=== PATIENT | male | born 1985 ===

== ENCOUNTER 2020-11-16 10:00 | Outpatient (AMB) | payer OTHER, SELFPAY ==
--- NOTE | 2020-11-16 10:20 | MHC.OFFVIS ---
Vital Signs 11/16/20 10:21 Height 5 ft 10 in Weight 211 lb BMI 30.2 BP 120/70 Pulse 88 Pulse Source Pulse Oximeter Temp 98.2 F Pulse Oximetry (%) 98 Oxygen Delivery Method Room Air Intake Visit Reasons: anxiety, weight gain Development Assistant Required: No Accompanied by: Parent Allergies No Known Allergies [No Known Allergies*] Allergy (Verified 04/19/24 09:29) Medication List - Last Reconciled 11/16/20 by Stan Tamez MD citalopram 20 mg PO DAILY clonidine HCl mg PO risperidone 1 mg PO BEDTIME HPI HPI anxiety, weight gain: Details: Patient is brought in today by his mother for further evaluation of a few concerning issues His mother states that he seems to have gained a lot of weight lately - is currently at 211 pounds today and he was just at 193 pounds when he was last seen back in 04/2020 States that patient also has had a recurrent non-productive cough for a few weeks now but his family has not noticed any SOB or increased congestion lately Patient also has not had any fever or chills and has not complained of any sore throat over the past week or so He has not complained of any chest pains and has had no nausea, vomiting, abdominal pain or change in bowel habits lately His mother adds that the skin lesion on his left thigh/buttocks area that was removed by dermatology last year seems to have recurred and she would like for him to go back to dermatology to have this rechecked and removed again if possible [facility] Medical History (Updated 04/19/24 @ 09:38 by Stan Tamez MD) Overweight (BMI 25.0-29.9) Vitamin D deficiency Tinea pedis of right foot Cellulitis of right foot Allergic dermatitis Autism Pyogenic granuloma Surgical History No pertinent past surgical history Family History Father Hypertension Hypercholesteremia Mother Depression Arthritis Brother In good health Autism Sister In good health Social History Housing: House Alcohol intake: never Patient Tobacco Use Status: Never used Tobacco e-Cigarette/Vaping Use: Never Used Second Hand Smoke Exposure: No service: No Current occupational status: disabled Cognitive needs: Yes Hearing needs: No Vision needs: No Review of Systems Const Denies chills, Denies fatigue, Denies fever(s), Denies headache(s) and Reports weight gain ENT Denies dysphagia, Denies dizziness, Denies otalgia, Denies headache(s), Denies neck pain, Denies odynophagia and Denies sore throat Card Denies chest pain, Denies palpitations and Denies dyspnea Resp Reports cough (recurrent, non-productive) and Denies dyspnea GI Denies abdominal pain, Denies constipation, Denies dysphagia, Denies heartburn, Denies diarrhea, Denies nausea, Denies odynophagia and Denies vomiting Denies dysuria and Denies nocturia Musc Denies neck pain Skin/Breast Reports lesions (recurrent skin lesion over the left thigh/buttock area) Neuro Denies dizziness and Denies headache(s) Endo Denies fatigue and Denies palpitations Physical Exam Vital Signs: Last Vital Signs Temp 98.2 F 11/16/20 10:21 Pulse 88 11/16/20 10:21 BP 120/70 11/16/20 10:21 Pulse Ox 98 11/16/20 10:21 Oxygen Delivery Method Room Air 11/16/20 10:21 BMI result Body Mass Index 30.2 Const General: no acute distress and alert HENMT Ears: TM's normal bilaterally and EAC's normal Throat: Yes posterior oropharynx normal and Yes tonsils normal (no TP congestion) Neck Neck: Yes no lymphadenopathy and Yes supple Thyroid: Thyroid normal Resp Auscultation: clear to auscultation bilaterally, no rales and no wheezes Cardio Rate: regular rate Rhythm: regular rhythm Heart sounds: no murmurs GI Palpation (GI): Soft to palpation and nontender Auscultation: normal bowel sounds General: Yes no CVA tenderness Back/Spine/Pelvis Back: no CVA tenderness Skin Other: (+) raised papular lesion(s) over the posterior upper left thigh/left buttock area Extrem General: Yes no clubbing, cyanosis or edema Assessment & Plan Assessment & Plan (1) Recurrent nonproductive cough: Code(s): R05 - Cough Category: Medical Plan - Stan Tamez MD: Will send patient for chest x-rays for further evaluation Advised that his recent recurrent cough is likely due to spring allergies Will start him on a trial of Fluticasone 50 mcg nasal spray QD PRN Orders: Orders XR chest 2V 11/16/20 Medications: New fluticasone propionate 50 mcg/actuation administer into each nostril 2 sprays intranasal DAILY 16 grams 5RF 30 days (2) Pyogenic granuloma: Code(s): L98.0 - Pyogenic granuloma Category: Medical Plan - Stan Tamez MD: Will refer him back to dermatology (Dr. Hicks) for further management - lesion was excised by Dr. Hicks last year in April 2020 but appears to have recurred since Orders: Referrals Dermatology Referral (3) Obesity (BMI 30-39.9): Code(s): E66.9 - Obesity, unspecified Category: Medical Plan - Stan Tamez MD: Patient has apparently gained over 15 pounds since his last visit and his mother is concerned about his weight gain Have advised her to look closely into patient's daily activities to make sure he is not being given anything additionally to eat by someone else who may have access to him Will send him for some labs QUENTIN for further evaluation Orders: Orders Complete Blood Count Auto Diff 11/16/20 Comprehensive Raymond. Panel Fast 11/16/20 Lipid Panel 11/16/20 TSH reflex Free T4 11/16/20 UA CC w/rflx Micro + Cult 11/16/20 (4) Autism: Code(s): F84.0 - Autistic disorder Category: Medical Plan - Stan Tamez MD: Follow up with psychiatry as scheduled Orders: Orders Comprehensive Raymond. Panel Fast 11/16/20 Patient Instructions: Follow up in 3 months Coding Level of Care Code Est Pt Level 4 (77503) Diagnoses Recurrent nonproductive cough R05 Pyogenic granuloma L98.0 Obesity (BMI 30-39.9) E66.9 Autism F84.0 Thrive Questionnaire Thrive Questionnaire I am a:: Parent/Caregiver What is your living situation today?: I have a steady place to live Within the past 12 months, the food you bought just didn't last and you didn't have the money to get more.: Never true Within the past 12 months, you worried whether your food would run out before you got money to buy more.: Never true
[2020-11-16 10:21] VITALS: BP 120/70; PULSE 88; TEMP 36.8; O2SAT 98; BMI 30.2
== END 2020-11-16 11:16 ==
LOC: HO.HMGH 10:00
PROVIDERS: PCP Internal Medicine; Visit Provider Internal Medicine
DX: L98.0 Pyogenic granuloma (principal); E66.9 Obesity, unspecified; F84.0 Autistic disorder
CPT/HCPCS: 99499

== ENCOUNTER 2020-11-16 11:28 | Outpatient (REF) | payer OTHER, SELFPAY ==
--- NOTE | ~2020-11-16 | XR_ITS ---
EXAMINATION: XR CHEST CLINICAL INFORMATION: Cough COMPARISON: Previous chest and rib x-rays November 2018 TECHNIQUE: 2 views of the chest were obtained. FINDINGS: No significant abnormality is noted involving the heart, lungs, mediastinum, bony thorax or soft tissues. XR/XR chest 2V IMPRESSION: Unremarkable examination.
[2020-11-16 12:46] LABS: MANUAL DIFF FLAG NO
[2020-11-16 13:03] LABS: Basophils Absolute Auto 0.1 X10*3/uL (0.0-0.2); Basophils Percent Auto 0.7 % (0-2); Eosinophils Absolute Auto 0.3 X10*3/uL (0.0-0.4); Eosinophils Percent Auto 3.9 % (0-4); Hematocrit 41.4 % (42-52); Hemoglobin 12.9 g/dl (14.0-18.0); Imm Gran Abs Auto 0.03 X10*3/uL (0.00-0.03); Imm Gran Pct Auto 0.4 % (0.0-0.4); Lymphocytes Percent Auto 28.3 % (20-40); Mean Corpuscular HGB Conc 31.2 g/dl (31.0-36.0); Mean Corpuscular Hemoglobin 26.9 pg (27.0-33.0); Mean Corpuscular Volume 86.3 fL (80-98); Mean Platelet Volume 9.4 fL (9.4-12.4); Monocytes Absolute Auto 0.8 X10*3/uL (0.1-1.2); Monocytes Percent Auto 10.6 % (2-11); Neutrophils Percent Auto 56.1 % (45-73); Platelet Count 283 X10*3/uL (160-400); Red Cell Distribution Width 13.4 % (11.0-16.0); White Blood Count 7.1 X10*3/uL (4.8-10.8)
[2020-11-16 13:15] LABS: Glucose Urine UA NEG (NEG); Leukocyte Esterase Urine NEG (NEG); Nitrite Urine NEG (NEG); PH 5.5 (5.0-8.0); Specific Gravity - Urine >= 1.030 (1.005-1.025); Urine Blood 2+ (NEG); Urine Ketones NEG (NEG); Urine Protein NEG (NEG-TRACE)
[2020-11-16 13:18] LABS: Appearance Urine HAZY; Color Urine YELLOW
[2020-11-16 13:28] LABS: Squamous Epithelial Cell Urine TRACE /LPF; WBC Urine 0-2 /HPF (0-4)
[2020-11-16 13:35] LABS: Alanine Aminotransferase 34 U/L (0-40); Albumin Level 4.3 g/dL (3.5-5.0); Alkaline Phosphatase 112 U/L (39-117); Anion Gap 12 (12-20); Aspartate Amino Transferase 26 U/L (5-37); Bilirubin Total 0.6 mg/dL (0.0-1.0); Blood Urea Nitrogen 10 mg/dL (9-16); Calcium 8.7 mg/dL (8.4-10.2); Carbon Dioxide 28 mmol/L (22-29); Chloride 103 mmol/L (96-108); Cholesterol 183 mg/dL; Estimated Glomerular Filt Rate > 60; Glucose Fasting 87 mg/dL (60-99); HDL Cholesterol 44 mg/dL; LDL Cholesterol Calculated 112 mg/dl; Potassium 4.1 mmol/L (3.3-5.1); Sodium 139 mmol/L (135-145); Total Protein 7.2 g/dL (6.5-8.0); Triglycerides 139 mg/dL
[2020-11-16 13:59] LABS: TSH reflex Free T4 1.88 uIU/mL (0.32-4.0)
== END 2020-11-16 11:29 | disposition home or self-care (01) ==
LOC: HO.LAB 11:28
PROVIDERS: PCP Internal Medicine; Visit Provider Internal Medicine
DX: F84.0 Autistic disorder (principal); R05 Cough; E66.9 Obesity, unspecified; L98.0 Pyogenic granuloma
CPT/HCPCS: 36415; 71046; 80053; 80061; 81001; 81003; 84443; 85025

== ENCOUNTER 2021-11-22 19:12 | Emergency (ER) | payer OTHER, MEDICAID, SELFPAY ==
--- NOTE | ~2021-11-22 | XR_ITS ---
Examination: XR ankle RT min 3V, XR ankle LT min 3V Indication: Atraumatic ankle swelling Comparison: No pertinent prior studies are currently available for comparison. Technique: 3 plain film views of each ankle obtained Findings: Right: Soft tissue swelling about the ankle more so laterally. Underlying bony structures however are unremarkable. There is no acute fracture or dislocation. No bony destructive lesions or periosteal reaction. No radiopaque foreign body or soft tissue gas. Left: Mild soft tissue swelling again more so laterally. Underlying bony structures are unremarkable with no acute fracture or dislocation. No bony destructive changes or periosteal reaction. XR/XR ankle LT min 3V Impression: Soft tissue swelling right more so than left. Underlying bony structures are grossly unremarkable
--- NOTE | ~2021-11-22 | XR_ITS ---
Examination: XR ankle RT min 3V, XR ankle LT min 3V Indication: Atraumatic ankle swelling Comparison: No pertinent prior studies are currently available for comparison. Technique: 3 plain film views of each ankle obtained Findings: Right: Soft tissue swelling about the ankle more so laterally. Underlying bony structures however are unremarkable. There is no acute fracture or dislocation. No bony destructive lesions or periosteal reaction. No radiopaque foreign body or soft tissue gas. Left: Mild soft tissue swelling again more so laterally. Underlying bony structures are unremarkable with no acute fracture or dislocation. No bony destructive changes or periosteal reaction. XR/XR ankle RT min 3V Impression: Soft tissue swelling right more so than left. Underlying bony structures are grossly unremarkable
[2021-11-22 19:16] VITALS: BP 133/86; PULSE 98; RESP 18; TEMP 36.9; O2SAT 98; BMI 25.7
--- NOTE | 2021-11-22 20:46 | ED.SKABFB ---
HPI - Skin/Abscess/Foreign Bdy General Chief complaint: Skin/Abscess/Foreign Body Stated complaint: painful swelling of the feet, rash Time Seen by Provider: 11/22/21 19:32 Source: family Mode of arrival: ambulatory Limitations: other (Patient is autistic nonverbal.) History of Present Illness HPI narrative: This is a 36-year-old male past medical history significant for nonverbal autism presenting to the emergency department with his parents that are concerned that his right lower ankle is red, swollen and patient has been itching at it. This has been going on for about 3 days. Mom tells me that this came on suddenly. Patient has not had a fever, chills, nausea, vomiting, chest pain, shortness of breath, headache, dizziness according to mom. No history of gout or pseudogout. MD complaint: rash Related Data Home Medications Medication Instructions Recorded Confirmed citalopram 20 mg tablet 20 mg PO DAILY 11/16/20 11/16/20 clonidine HCl 0.1 mg tablet mg PO 11/16/20 11/16/20 risperidone 1 mg tablet 1 mg PO BEDTIME 11/16/20 11/16/20 Previous Rx's Medication Instructions Recorded fluticasone propionate 50 2 spray INTRANASAL DAILY 30 Days 11/16/20 mcg/actuation nasal #16 g spray,suspension cephalexin 500 mg tablet 500 mg PO Q6H 7 Days #28 tab 11/22/21 doxycycline hyclate 100 mg capsule 100 mg PO BID 7 Days #14 cap 11/22/21 Allergies Allergy/AdvReac Type Severity Reaction Status Date / Time No Known Allergies Allergy Verified 11/22/21 19:16 [No Known Allergies*] Review of Systems Review of Systems: Yes Unobtainable due to mental status PMFSH Past Medical History Attestation statement: The following information was validated with the patient. Source: old records reviewed and nursing notes reviewed Medical History Autism Obesity (BMI 30-39.9) Pyogenic granuloma Recurrent nonproductive cough Surgical History No pertinent past surgical history Family History Family History Father Hypertension Hypercholesteremia Mother Depression Arthritis Brother In good health Autism Sister In good health Social History Social History Alcohol intake: never Advance Directives: No Advance Directives Information Provided: Yes Physical Exam Vital Signs: Vital Signs: Last Vital Signs Temp 98.4 F 11/22/21 19:16 Pulse 98 11/22/21 19:16 Resp 18 11/22/21 19:16 BP 133/86 11/22/21 19:16 Pulse Ox 98 11/22/21 19:16 BMI result Body Mass Index 25.7 VSS Appearance: Awake, alert, moving all extremities, at baseline. No acute distress.? Head: Normocephalic, atraumatic, no step-offs or deformities Eyes: Pupils equal, round and reactive to light.? ENT: Pharynx normal.? Neck: Normal inspection.? Neck supple.? CVS: Normal heart rate and rhythm.? Pulses normal.? Respiratory: No respiratory distress.? Breath sounds normal.? Abdomen: Soft and nontender.? Skin: Skin warm and dry.? Normal skin color.? Normal skin turgor.? Extremities: No lower extremity edema.? No calf ttp. 5/5 strength to bilateral upper and lower extremities. Bilateral lower extremities with 2+ dorsalis pedis and posterior tibialis pulses equal bilateral. Responding to stimuli to lower extremities. Full rom to b/l ankles and toes. Back: No midline tenderness, no C-spine tenderness, full range of motion, no CVA tenderness bilaterally Neuro: Awake, alert, moving all extremities appropriate for baseline No motor deficit.? Course Reevaluation(s) Reevaluation #1: X-ray with bilateral soft tissue swelling right more than the left, bony structures intact. At this time will treat patient for cellulitis with p.o. antibiotics. Advised patient's parents to return with new or worsening symptoms. Given strict return precautions, Mario Hall on discharge. Comfortable with discharge home with PCP follow-up. Time: 21:00 MDM - Skin/Abscess/Foreign Bdy MDM Narrative Medical decision making narrative: 2028 36 yo m presents w/ cellulitis to the lateral aspect of right ankle x3 days worsening. Physical exam with cellulitis to the right ankle, overlying warmth, edema and slight erythema. Excoriations noted overlying the cellulitis. History and physical examination with low suspicion for septic joint, gout, pseudogout. Likely cellulitis. Plan at this time is x-rays Medical Records Attestation: I reviewed the patient's medical records. Lab Data Attestation: I reviewed the patient's lab results. Critical Care Time Critical Care Time Critical Care Time: No Discharge Plan Discharge Clinical Impression: Cellulitis Patient Disposition: Home, Self-Care Instructions: Cellulitis (ED) Additional Instructions: Take your medications as prescribed. If you were prescribed antibiotics today, it is important that you take your medication to their entirety, do not skip any doses, do not finish them early. Follow-up with your primary care provider this week. Return to the emergency department with new or worsening symptoms. Such as worsening redness, warmth, fevers, chills, chest pain, shortness of breath, altered mental status In case of emergency call 911 Prescriptions: New doxycycline hyclate 100 mg capsule 100 mg PO BID 7 Days Qty: 14 0RF cephalexin 500 mg tablet 500 mg PO Q6H 7 Days Qty: 28 0RF No Action risperidone 1 mg tablet 1 mg PO BEDTIME 0RF citalopram 20 mg tablet 20 mg PO DAILY 0RF clonidine HCl 0.1 mg tablet PO 0RF fluticasone propionate 50 mcg/actuation spray,suspension 2 spray intranasal DAILY 30 Days Qty: 16 5RF Rx Instructions: administer into each nostril
== END 2021-11-22 21:28 | disposition home or self-care (01) ==
PROVIDERS: Emergency Provider Internal Medicine
DX: L03.115 Cellulitis of right lower limb (principal); M25.571 Pain in right ankle and joints of right foot
CPT/HCPCS: 73610; 99283

== ENCOUNTER 2021-11-30 11:00 | Outpatient (REF) | payer OTHER, SELFPAY ==
[2021-11-30 11:29] LABS: MANUAL DIFF FLAG NO
[2021-11-30 12:22] LABS: Basophils Percent Auto 0.7 % (0-2); Eosinophils Absolute Auto 0.3 X10*3/uL (0.0-0.4); Eosinophils Percent Auto 5.2 % (0-4); Hemoglobin 13.5 g/dl (14.0-18.0); Imm Gran Abs Auto 0.02 X10*3/uL (0.00-0.03); Imm Gran Pct Auto 0.4 % (0.0-0.4); Lymphocytes Absolute Auto 1.7 X10*3/uL (1.2-4.9); Lymphocytes Percent Auto 30.6 % (20-40); Mean Corpuscular HGB Conc 31.4 g/dl (31.0-36.0); Mean Corpuscular Hemoglobin 27.3 pg (27.0-33.0); Mean Corpuscular Volume 86.9 fL (80.0-98.0); Mean Platelet Volume 9.3 fL (9.4-12.4); Monocytes Absolute Auto 0.6 X10*3/uL (0.1-1.2); Monocytes Percent Auto 9.8 % (2-11); Neutrophils Percent Auto 53.3 % (45-73); Platelet Count 298 X10*3/uL (160-400); Red Blood Count 4.95 X10*6/uL (4.60-5.80); Red Cell Distribution Width 13.9 % (11.0-16.0); White Blood Count 5.6 X10*3/uL (4.8-10.8)
[2021-11-30 12:58] LABS: Alanine Aminotransferase 15 U/L (0-40); Albumin Level 4.4 g/dL (3.5-5.0); Alkaline Phosphatase 108 U/L (39-117); Anion Gap 14 (12-20); Aspartate Amino Transferase 14 U/L (5-37); Bilirubin Total 0.3 mg/dL (0.0-1.0); Blood Urea Nitrogen 12 mg/dL (9-16); Calcium 9.9 mg/dL (8.4-10.2); Carbon Dioxide 26 mmol/L (22-29); Chloride 104 mmol/L (96-108); Estimated Glomerular Filt Rate > 60; Glucose Random 92 mg/dL (60-115); Potassium 4.5 mmol/L (3.3-5.1); Sodium 139 mmol/L (135-145); Total Protein 7.5 g/dL (6.5-8.0)
[2021-11-30 13:05] LABS: Erythrocyte Sedimentation Rate 7 MM/HR (0-15)
[2021-11-30 13:05] LABS: Appearance Urine CLEAR; Color Urine YELLOW; Glucose Urine UA NEG (NEG); Leukocyte Esterase Urine NEG (NEG); Nitrite Urine NEG (NEG); PH 5.5 (5.0-8.0); Specific Gravity - Urine 1.025 (1.005-1.025); UACC Culture Trigger NO; Urine Blood 1+ (NEG); Urine Ketones NEG (NEG); Urine Protein NEG (NEG-TRACE)
[2021-11-30 14:20] LABS: Squamous Epithelial Cell Urine TRACE /LPF; WBC Urine 0-2 /HPF (0-4)
== END 2021-11-30 11:01 | disposition home or self-care (01) ==
LOC: HO.LAB 11:00
PROVIDERS: PCP Internal Medicine; Visit Provider Nurse Practitioner Acute Care
DX: L03.90 Cellulitis, unspecified (principal)
CPT/HCPCS: 36415; 80053; 81001; 81003; 85025; 85652

== ENCOUNTER 2023-04-18 08:55 | Outpatient (AMB) | payer OTHER, SELFPAY ==
[2023-04-18 08:56] VITALS: BP 122/80; PULSE 84; O2SAT 97; BMI 25.8
--- NOTE | 2023-04-18 08:56 | A.OFFPC_ITS ---
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 Accompanied by: Self / Same As Patient Allergies No Known Allergies [No Known Allergies*] Allergy (Verified 04/18/23 09:04) Medication List - Last Reconciled 04/18/23 by Stan Tamez MD No Known Home Meds Tobacco use date assessed: 04/18/23 Dental Screening Dental Screen Date: 04/18/23 Did you have a dental visit in the last 12 months?: No Did you have a dental problem in the last 6 months where you did not have access to dental care?: No Was dental information given to patient?: Patient has dentist HPI PE HPI Details Patient is brought in by family today for his annual physical examination He is reportedly doing well with no acute issues - patient is non-verbal due to his autism He is dependent on others for all ADLs due to his mental (autism) and physical (lymphedema) conditions and has IMMIGRATION 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 services (approx 39 hrs/week) Per patient's mother, patient used to go to a day program and was being pr escribed Risperidone, Citalopram and Clonidine in the past States that the medications, especially his Risperidone and Clonidine, were to calm patient down as he often gets aggressive at the day program whenever he is taken off his routine States that patient has been staying at home and has not gone to any day program for over a year now; his mother states that his family just helps take care of him in addition to what 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-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 States that since patient has been home and as long as they allow him to stay on his routine, he has not exhibited any signs or symptoms of aggressiveness and they stopped giving him his Rx over a year ago as they do not feel that he needs to be taking them since he has been home States that psychiatry closed his case over a year ago as a result since they feel that patient does not need to continue following up with them regularly as he is no longer being prescribed and maintained on any medications His mother states that she will also need a letter from us (his PCP) today indicating that it is medically acceptable for patient to no longer be taking his medications and that he is stable OFF meds Patient has not exhibited any acute symptoms of headaches, dizziness, chest pains, SOB, nausea/vomiting or abdominal pain, per his mother He is incontinent of stool and urine and wears adult pull-ups Per his mother, he has not had any issues with regular bowel movements and his stools appear normal States that patient sleeps well at night and has a good appetite and tends to finish all of the food he is given during mealtimes [facility] Medical History Allergic dermatitis Autism Cellulitis of right foot Obesity (BMI 30-39.9) Pyogenic granuloma Tinea pedis of right foot Surgical History No pertinent past surgical history Family History Father Hypertension Hypercholesteremia Mother Depression Arthritis Brother In good health Autism Sister In good health Social History Housing: House Alcohol intake: never Patient Tobacco Use Status: Never used Tobacco e-Cigarette/Vaping Use: Never Used Second Hand Smoke Exposure: No service: No Current occupational status: disabled Cognitive needs: Yes Hearing needs: No Vision needs: No Questionnaire PHQ-9 Over the last 2 weeks, how often have you been bothered by any of the following problems? 1. Little interest or pleasure in doing things: not at all 2. Feeling down, depressed, or hopeless: not at all 3. Trouble falling or staying asleep, or sleeping too much: not at all 4. Feeling tired or having little energy: not at all 5. Poor appetite or overeating: not at all 6. Feeling bad about yourself - or that you are a failure or have let yourself or your family down: not at all 7. Trouble concentrating on things, such as reading the newspaper or watching television: not at all 8. Moving or speaking so slowly that other people could have noticed. Or the opposite - being so fidgety or restless that you have been moving around a lot more than usual: not at all 9. Thoughts that you would be better off or of hurting yourself in some way: not at all Total score: 0 Depression Screening Interpretation: Negative 04124 - PHQ-9 Billing: Yes Source: Developed by Drs. Morgan Barton, Josefina Mcdaniel, Johnny Silva and colleagues, with an educational haydee from [employer]. Thrive Questionnaire Date Thrive assessed: 04/18/23 I am a: Patient What is your living situation today?: I have a steady place to live Within the past 12 months, did the food you bought not last and you didn't have the money to get more?: Never true Within the past 12 months, did you worry whether your food would run out before you got money to buy more?: Never true Do you have trouble paying for medicines?: No Do you have trouble getting transportation to medical appointments?: No Do you have trouble paying your heating and electricity bill?: No Do you have trouble taking care of your child, family member or friend?: No Do you have trouble with day-to-day activities such as bathing, preparing meals, shopping, managing finances, etc.?: No Are you currently unemployed and looking for a job?: No Are you interested in more education?: No Please select the resources that you would like help with: None Currently or been in a relationship where the following occur: no concerns reported AUDIT C Alcohol Use Questionnaire (AUDIT-C) 1. How often do you have a drink containing alcohol?: Never 3. How often do you have six or more drinks on one occasion?: Never Total Score: 0 Score Reviewed/Action Taken: Yes BERTHA-7 AMB Questionnaire BERTHA-7 Date BERTHA - 7 assessed: 04/18/23 Feeling nervous, anxious, or on edge: 0 = Not at all Not being able to stop or control worryin = Not at all Worrying too much about different things: 0 = Not at all Trouble relaxin = Not at all Being so restless that it is hard to sit still: 0 = Not at all Becoming easily annoyed or irritable: 0 = Not at all Feeling afraid as if something awful might happen: 0 = Not at all Total BERTHA-7 score (0-4 normal; 5-9 mild; 10-14 moderate; 15-21 severe): 0 Source: Developed by Drs. Morgan Barton, Johnny Kevin Kroenke and colleagues, with an educational haydee from [employer]. Review of Systems Const Details: ROS is limited to what family/mother can provide information-gordon, as patient is non-verbal Denies chills, Denies fatigue, Denies fever(s), Denies headache(s) and Denies weakness Eyes Denies dry eyes, Denies irritation and Denies itchy eyes ENT Denies dysphagia, Denies dizziness, Denies headache(s), Denies nasal congestion, Denies neck pain and Denies sore throat Card Denies chest pain, Denies rapid heart rate, Denies irregular heart rhythm, Denies palpitations and Denies dyspnea Resp Denies chest congestion, Denies cough, Denies dyspnea and Denies wheezing GI Denies abdominal pain, Denies constipation, Denies dysphagia, Reports fecal incontinence (wears adult pull-ups, per mother), Denies diarrhea, Denies loose stools, Denies nausea and Denies vomiting Denies hematuria, Denies dysuria and Reports urinary incontinence (wears adult pull-ups, per mother) Musc Denies back pain, Denies arthralgias, Denies joint swelling and Denies neck pain Skin/Breast Denies change in pigmentation, Denies lesions, Denies rash and Denies unusual bruising Neuro Denies dizziness, Denies headache(s), Denies paresthesias and Denies weakness Endo Denies fatigue and Denies palpitations Aller/Immun Denies itchy eyes and Denies wheezing Physical exam (Primary Care) Vital Signs: Last Vital Signs Pulse 84 04/18/23 08:56 BP 122/80 04/18/23 08:56 Pulse Ox 97 04/18/23 08:56 Oxygen Delivery Method Room Air 04/18/23 08:56 BMI result Body Mass Index 25.8 Tobacco/Smoking Status: Tobacco use Status Tobacco use date assessed 04/18/23 04/18/23 09:01 Patient Tobacco Use Status Never used Tobacco 04/18/23 09:01 e-Cigarette/Vaping Use Never Used 04/18/23 09:01 PHQ-9: PHQ-9 Score PHQ-9: Total score 0 04/18/23 09:01 Depression Screening Interpretation: Negative Thrive Assessment: Date of Thrive Assessment Date Thrive assessed 04/18/23 04/18/23 09:01 Currently or been in a relationship where the following occur: no concerns reported Const Other: PE findings are limited to what patient is able to cooperate with exam-gordon General: cooperative, no acute distress and alert Nutritional Appearance: well nourished Limitations: behavioral limitations (autistic and non-verbal) [facility] Head: Yes normocephalic and Yes atraumatic Ears: external ears normal, TM's normal bilaterally and EAC's normal General nose exam: No nasal discharge present Face and sinus: Yes normal facial exam and Yes face symmetric Mouth: Normal oral and palatal mucosa present Throat: Yes posterior oropharynx normal and Yes tonsils normal (no TP congestion) Eyes Eyelids: Yes eyelids normal Conjunctivae: conjunctivae normal Neck Neck: Yes no lymphadenopathy and Yes supple Thyroid: Thyroid normal Resp Auscultation: clear to auscultation bilaterally, no rales and no wheezes Cardio Rate: regular rate Rhythm: regular rhythm Heart sounds: no murmurs GI Palpation (GI): Soft to palpation, nontender and no guarding Auscultation: normal bowel sounds Back/Spine/Pelvis Thoracic/Lumbar Spine: thoracic and lumbar spine normal to inspection Skin Lesions: no lesions Rashes: no rashes Neuro General: moves all extremities Gait exam (Neuro): Normal gait present Extrem General: Yes no clubbing, cyanosis or edema Assessment and Plan Assessment & Plan (1) Annual physical exam: Code(s): Z00.00 - Encounter for general adult medical examination without abnormal findings Plan: Check labs (2) Autism: Code(s): F84.0 - Autistic disorder Plan: Patient is non-verbal and dependent for all ADLs - has IMMIGRATION ASSOCIATE services Used to go to day programs and was on Rx including Citalopram, Clonidine and Risperidone in the past but his mother states that he has been mostly staying at home for over a year and no longer goes to any day programs He was also taken off all of his meds by family over a year ago as he was being prescribed meds mostly to help control his aggressiveness - reportedly gets aggressive when taken off his routine at the program - but his mother states that since he has been staying at home and left to his own routine, he has not exhibited any signs of aggression and as such, they do not feel that he needs to continue to be medicated States that psychiatry also signed off on his case as a result and he is no longer seeing psychiatry for follow up regularly (3) Lymphedema of lower extremity: Code(s): I89.0 - Lymphedema, not elsewhere classified Qualifiers: Laterality: unspecified laterality Qualified Code(s): I89.0 - Lymphedema, not elsewhere classified Plan: Most likely dependent/stasis edema Family reports intermittent swelling in patient's right lower extremity - he currently has NO swelling noted, Have again encouraged family to put compression stockings on patient during the day (and off at night) and to try to keep patient's lower extremities elevated when edema occurs Plan To return in 1 year for his next annual physical examination Orders: Orders Comprehensive [place]. Panel Fast Today F84.0 - Autistic disorder, I89.0 - Lymphedema, not elsewhere classified, Z00.00 - Encounter for general adult medical examination without abnormal findings Hemoglobin A1c Today F84.0 - Autistic disorder, I89.0 - Lymphedema, not elsewhere classified, R73.01 - Impaired fasting glucose, Z00.00 - Encounter for general adult medical examination without abnormal findings Lipid Panel Today E78.00 - Pure hypercholesterolemia, unspecified, F84.0 - Autistic disorder, I89.0 - Lymphedema, not elsewhere classified, Z00.00 - Encounter for general adult medical examination without abnormal findings TSH reflex Free T4 Today F84.0 - Autistic disorder, I89.0 - Lymphedema, not elsewhere classified, Z00.00 - Encounter for general adult medical examination without abnormal findings Vitamin D 25-OH Total Today E55.9 - Vitamin D deficiency, unspecified, F84.0 - Autistic disorder, Z00.00 - Encounter for general adult medical examination without abnormal findings Complete Blood Count Auto Diff Today F84.0 - Autistic disorder, I89.0 - Lymphed eloina, not elsewhere classified, Z00.00 - Encounter for general adult medical examination without abnormal findings UA CC w/rflx Micro + Cult Today F84.0 - Autistic disorder, I89.0 - Lymphedema, not elsewhere classified, R30.0 - Dysuria, Z00.00 - Encounter for general adult medical examination without abnormal findings Coding Level of Care Code Est Pt Prev Care [id number]) Diagnoses Annual physical exam Z00.00 Autism F84.0 Lymphedema of lower extremity I89.0 Laterality: unspecified laterality
== END 2023-04-18 09:25 | disposition home or self-care (01) ==
PROVIDERS: PCP Internal Medicine; Visit Provider Internal Medicine
DX: Z00.00 Encounter for general adult medical examination without abnormal findings (principal); F84.0 Autistic disorder; I89.0 Lymphedema, not elsewhere classified
CPT/HCPCS: 99395

== ENCOUNTER 2023-04-18 09:30 | Outpatient (REF) | payer OTHER, SELFPAY ==
[2023-04-18 09:50] LABS: MANUAL DIFF FLAG NO
[2023-04-18 10:59] LABS: Basophils Absolute Auto 0.1 X10*3/uL (0.0-0.2); Basophils Percent Auto 1.1 % (0-2); Eosinophils Absolute Auto 0.3 X10*3/uL (0.0-0.4); Hematocrit 43.3 % (42.0-52.0); Hemoglobin 13.9 g/dl (14.0-18.0); Imm Gran Abs Auto 0.01 X10*3/uL (0.00-0.03); Imm Gran Pct Auto 0.2 % (0.0-0.4); Lymphocytes Absolute Auto 2.2 X10*3/uL (1.2-4.9); Lymphocytes Percent Auto 33.3 % (20-40); Mean Corpuscular HGB Conc 32.1 g/dl (31.0-36.0); Mean Corpuscular Hemoglobin 27.9 pg (27.0-33.0); Mean Corpuscular Volume 86.9 fL (80.0-98.0); Mean Platelet Volume 9.4 fL (9.4-12.4); Monocytes Absolute Auto 0.8 X10*3/uL (0.1-1.2); Monocytes Percent Auto 11.6 % (2-11); Neutrophils Absolute Auto 3.3 x10*3/uL (2.0-8.3); Neutrophils Percent Auto 48.8 % (45-73); Platelet Count 271 X10*3/uL (160-400); Red Blood Count 4.98 X10*6/uL (4.60-5.80); White Blood Count 6.7 X10*3/uL (4.8-10.8)
[2023-04-18 11:07] LABS: Estimated Average Glucose 105 mg/dL; Hemoglobin A1c % 5.3 %
[2023-04-18 11:09] LABS: Appearance Urine Clear; Color Urine Yellow; Glucose Urine UA Negative (Negative); Leukocyte Esterase Urine Negative (Negative); Nitrite Urine Negative (Negative); PH 5.5 (5.0-9.0); Specific Gravity - Urine >= 1.030 (1.005-1.025); UMIC TRIGGER UACC YES; Urine Blood Small (1+) (Negative); Urine Ketones Negative (Negative); Urine Protein Negative (Neg-Trace)
[2023-04-18 11:15] LABS: Bacteria Urine None Seen (None Seen); Hyaline Casts Urine 0-2 /LPF (0-2); Squamous Epithelial Cell Urine 0-2 /HPF (0-2); WBC Urine 0-5 /HPF (0-5)
[2023-04-18 11:18] LABS: Alanine Aminotransferase 12 U/L (0-40); Albumin Level 4.6 g/dL (3.5-5.0); Alkaline Phosphatase 91 U/L (39-117); Anion Gap 18 (12-20); Aspartate Amino Transferase 15 U/L (5-37); Bilirubin Total 0.5 mg/dL (0.0-1.0); Blood Urea Nitrogen 14 mg/dL (9-16); Calcium 9.4 mg/dL (8.4-10.2); Carbon Dioxide 24 mmol/L (22-29); Chloride 104 mmol/L (96-108); Cholesterol 174 mg/dL; Estimated Glomerular Filt Rate > 60; Glucose Fasting 92 mg/dL (60-99); HDL Cholesterol 40 mg/dL; LDL Cholesterol Calculated 121 mg/dl; Potassium 3.6 mmol/L (3.3-5.1); Sodium 142 mmol/L (135-145); Total Protein 7.9 g/dL (6.5-8.0); Triglycerides 67 mg/dL
[2023-04-18 11:20] LABS: TSH reflex Free T4 3.36 uIU/mL (0.32-4.0); Vitamin D 25-OH Total 9.8 ng/mL (>30)
== END 2023-04-18 09:31 | disposition home or self-care (01) ==
LOC: HO.LAB 09:30
PROVIDERS: PCP Internal Medicine; Visit Provider Internal Medicine
DX: E78.00 Pure hypercholesterolemia, unspecified (principal); F84.0 Autistic disorder; I89.0 Lymphedema, not elsewhere classified; Z00.00 Encounter for general adult medical examination without abnormal findings; E55.9 Vitamin D deficiency, unspecified; R73.01 Impaired fasting glucose; R30.0 Dysuria
CPT/HCPCS: 36415; 80053; 80061; 81001; 81003; 82306; 83036; 84443; 85025

== ENCOUNTER 2024-04-19 08:57 | Outpatient (AMB) | payer OTHER, SELFPAY ==
[2024-04-19 09:20] VITALS: BP 120/80; PULSE 82; O2SAT 97; BMI 26.8
--- NOTE | 2024-04-19 09:20 | A.OFFPC_ITS ---
Vital Signs 04/19/24 09:20 Height 6 ft Weight 197 lb 8 oz BMI 26.8 BP 120/80 Blood Pressure Location Lt brachial Position Sitting Pulse 82 Pulse Source Pulse Oximeter Pulse Oximetry (%) 97 Oxygen Delivery Method Room Air Intake Visit Reasons: pe Intake Note: Patient is here today for a physical. [employer] Professional Required: No Accompanied by: Mother Allergies No Known Allergies [No Known Allergies*] Allergy (Verified 04/19/24 09:29) Medication List - Last Reconciled 04/19/24 by Stan Tamez MD No Known Home Meds Tobacco use date assessed: 04/19/24 Dental Screening Dental Screen Date: 04/18/23 HPI pe HPI Details Patient is brought in by mother today for his annual physical examination He is reportedly doing well with no acute issues - patient is non-verbal due to his autism He is dependent (on others) for all ADLs due to his mental (autism) and physical (lymphedema) conditions and 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 (approx 39 hrs/week) Per patient's mother, patient used to go to a day program but has not gone in a couple of years now - states that patient did not like the experience His mother states that his family just helps take care of him at home, in addition to the services that his core cutter and reamer provide States that since patient has been home and as long as they allow him to stay on his routine, he has not exhibited any signs or symptoms of aggressiveness and they stopped giving him his Rx about 2 years ago as they do not feel that he needs to be taking them since he has been home States that psychiatry closed his case then as a result since they feel that patient does not need to continue following up with them regularly if he is no longer being prescribed and maintained on any medications Per his mother, patient has been doing well He's had no issues with acute headaches, dizziness, chest pains or SOB No nausea/vomiting, no abdominal pain noted He is incontinent of stool and urine and wears adult pull-ups Per his mother, he has not had any issues with bowel movements and his stools appear normal He had his follow up labs done yesterday [facility] Medical History (Updated 04/19/24 @ 09:38 by Stan Tamez MD) Overweight (BMI 25.0-29.9) Vitamin D deficiency Tinea pedis of right foot Cellulitis of right foot Allergic dermatitis Autism Pyogenic granuloma Surgical History No pertinent past surgical history Family History Father Hypertension Hypercholesteremia Mother Depression Arthritis Brother In good health Autism Sister In good health Social History Housing: House Alcohol intake: never Patient Tobacco Use Status: Never used Tobacco e-Cigarette/Vaping Use: Never Used Second Hand Smoke Exposure: No service: No Current occupational status: disabled Cognitive needs: Yes Hearing needs: No Vision needs: No Questionnaire PHQ-9 Over the last 2 weeks, how often have you been bothered by any of the following problems? 1. Little interest or pleasure in doing things: not at all 2. Feeling down, depressed, or hopeless: not at all 3. Trouble falling or staying asleep, or sleeping too much: not at all 4. Feeling tired or having little energy: not at all 5. Poor appetite or overeating: not at all 6. Feeling bad about yourself - or that you are a failure or have let yourself or your family down: not at all 7. Trouble concentrating on things, such as reading the newspaper or watching television: not at all 8. Moving or speaking so slowly that other people could have noticed. Or the opposite - being so fidgety or restless that you have been moving around a lot more than usual: not at all 9. Thoughts that you would be better off or of hurting yourself in some way: not at all Total score: 0 Depression Screening Interpretation: Negative Depression Screening Done: Yes 26462 - PHQ-9 Billing: Yes Source: Developed by Drs. Morgan Barton, Josefina Mcdaniel, Johnny Silva and colleagues, with an educational haydee from [employer]. Thrive Questionnaire Date Thrive assessed: 04/19/24 I am a: Patient What is your living situation today?: I have a steady place to live Within the past 12 months, did the food you bought not last and you didn't have the money to get more?: Never true Within the past 12 months, did you worry whether your food would run out before you got money to buy more?: Never true Do you have trouble paying for medicines?: No Do you have trouble getting transportation to medical appointments?: No Do you have trouble paying your heating and electricity bill?: No Do you have trouble taking care of your child, family member or friend?: No Do you have trouble with day-to-day activities such as bathing, preparing meals, shopping, managing finances, etc.?: No Are you currently unemployed and looking for a job?: No Are you interested in more education?: No Please select the resources that you would like help with: None Currently or been in a relationship where the following occur: No concerns reported THRIVE Score: 0 AUDIT C Alcohol Use Questionnaire (AUDIT-C) 1. How often do you have a drink containing alcohol?: Never 3. How often do you have six or more drinks on one occasion?: Never Total Score: 0 Score Reviewed/Action Taken: Yes BERTHA-7 AMB Questionnaire BERTHA-7 Date BERTHA - 7 assessed: 04/19/24 Feeling nervous, anxious, or on edge: 1 = Several days Not being able to stop or control worryin = Not at all Worrying too much about different things: 0 = Not at all Trouble relaxin = Several days Being so restless that it is hard to sit still: 1 = Several days Becoming easily annoyed or irritable: 1 = Several days Feeling afraid as if something awful might happen: 0 = Not at all Total BERTHA-7 score (0-4 normal; 5-9 mild; 10-14 moderate; 15-21 severe): 4 Source: Developed by Drs. Morgan Barton, Josefina Mcdaniel, Johnny Silva and colleagues, with an educational haydee from [employer]. BERTHA-7 Assessment Billing BERTHA-7 Assessment Tool: BERTHA-7 Assessment 72647 Review of Systems Const Details: ROS is limited to what family/mother can provide information-gordon, as patient is non-verbal Denies chills, Denies fatigue, Denies fever(s), Denies headache(s), Denies malaise and Denies weakness Eyes Denies blurry vision, Denies change in vision, Denies irritation and Denies itchy eyes ENT Denies dysphagia, Denies dizziness, Denies otalgia, Denies headache(s), Denies nasal congestion, Denies neck pain, Denies odynophagia and Denies sore throat Card Denies chest pain, Denies rapid heart rate, Denies irregular heart rhythm, Denies palpitations and Denies dyspnea Resp Denies chest congestion, Denies cough, Denies dyspnea and Denies wheezing GI Denies abdominal pain, Denies bloating, Denies constipation, Denies dysphagia, Denies heartburn, Denies diarrhea, Denies nausea, Denies odynophagia and Denies vomiting Denies hematuria, Denies difficulty urinating, Denies dysuria, Denies urinary frequency and Denies urinary urgency Musc Denies back pain, Denies arthralgias, Denies joint swelling, Denies muscle weakness and Denies neck pain Skin/Breast Denies change in pigmentation, Denies lesions, Denies rash and Denies unusual bruising Neuro Denies dizziness, Denies headache(s), Denies paresthesias and Denies weakness Endo Denies fatigue and Denies palpitations Aller/Immun Denies itchy eyes and Denies wheezing Physical exam (Primary Care) Vital Signs: Last Vital Signs Pulse 82 04/19/24 09:20 BP 120/80 04/19/24 09:20 Pulse Ox 97 04/19/24 09:20 Oxygen Delivery Method Room Air 04/19/24 09:20 BMI result Body Mass Index 26.8 Tobacco/Smoking Status: Tobacco use Status Tobacco use date assessed 04/19/24 04/19/24 09:25 Patient Tobacco Use Status Never used Tobacco 04/19/24 09:21 e-Cigarette/Vaping Use Never Used 04/19/24 09:21 PHQ-9: PHQ-9 Score PHQ-9: Total score 0 04/19/24 09:25 Depression Screening Interpretation: Negative Thrive Assessment: Date of Thrive Assessment Date Thrive assessed 04/19/24 04/19/24 09:25 Currently or been in a relationship where the following occur: No concerns reported Const Other: PE findings are limited to what patient is able to cooperate with exam-gordon General: no acute distress, alert and awake Nutritional Appearance: well nourished Orientation/consciousness: patient oriented x3 Limitations: behavioral limitations (autistic and non-verbal) HENMT Head: Yes normocephalic and Yes atraumatic Ears: external ears normal, TM's normal bilaterally and EAC's normal General nose exam: No nasal discharge present Face and sinus: Yes normal facial exam and Yes sinuses nontender Mouth: Normal oral and palatal mucosa present Teeth and gingiva: dentition normal Throat: Yes posterior oropharynx normal and Yes tonsils normal (no TP congestion) Eyes Eyelids: Yes eyelids normal Conjunctivae: conjunctivae normal Pupils: Equal, round and reactive pupils present EOM: EOMs intact bilaterally Neck Neck: Yes no lymphadenopathy and Yes supple Thyroid: Thyroid normal Resp Auscultation: clear to auscultation bilaterally, no rales and no wheezes Cardio Rate: regular rate Rhythm: regular rhythm Heart sounds: no murmurs GI Palpation (GI): Soft to palpation, nontender and No hepatosplenomegaly present Auscultation: normal bowel sounds General: Yes no CVA tenderness Back/Spine/Pelvis Back: no CVA tenderness Thoracic/Lumbar Spine: thoracic and lumbar spine normal to inspection Skin Lesions: no lesions Rashes: no rashes Neuro General: patient oriented x3, moves all extremities, no focal motor deficits and CN's II-XI intact bilaterally Cranial nerves: Yes Equal, round and reactive pupils present Cognition (Neuro): normal cognition Gait exam (Neuro): Normal gait present Extrem General: No clubbing, No cyanosis and Yes pedal edema ((+) trace, bilaterally) Results Reviewed Results Reviewed: Laboratory Tests 04/18/23 04/18/23 09:49 09:55 WBC 6.7 Hgb 13.9 L Hct 43.3 Plt Count 271 Sodium 142 Potassium 3.6 Creatinine 1.01 Estimated GFR > 60 Fasting Glucose 92 Hemoglobin A1c % 5.3 Calcium 9.4 AST 15 ALT 12 Triglycerides 67 Cholesterol 174 LDL Cholesterol, Calc 121 HDL Cholesterol 40 25-OH Vitamin D Total 9.8 TSH 3.36 Ur Specific Arnold >= 1.030 H Urine Protein Negative Urine Glucose (UA) Negative Urine Blood Small (1+) H Urine Nitrite Negative Ur Leukocyte Esterase Negative Assessment and Plan Assessment & Plan (1) Annual physical exam: Code(s): Z00.00 - Encounter for general adult medical examination without abnormal findings Plan: Results of his labs done yesterday reviewed and discussed with patient's mother (2) Vitamin D deficiency: Code(s): E55.9 - Vitamin D deficiency, unspecified Plan: Have advised them that his Vitamin D level is very low on his recent labs Will start him on Vitamin D3 2000 units QD (3) Autism: Code(s): F84.0 - Autistic disorder Plan: Patient is non-verbal and dependent for all ADLs - 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 He used to go to day programs and was on multiple Rx's, including Citalopram, Clonidine and Risperidone in the past but his mother states that he has been mostly staying at home for about 2 years now and no longer goes to any day programs He was also taken off all of his meds by family a couple of years ago as he was being prescribed meds mostly to help control his aggressiveness - he reportedly gets aggressive when taken off his routine at the program - but his mother states that since he has been staying at home and left to his own routine, he has not exhibited any signs of aggression and as such, they do not feel that he needs to continue to be medicated States that psychiatry also signed off on his case as a result and he is no longer seeing psychiatry for follow up regularly (4) Lymphedema of lower extremity: Code(s): I89.0 - Lymphedema, not elsewhere classified Plan: Most likely dependent/stasis edema Family reports intermittent swelling in patient's right lower extremity - he currently has minimal edema noted Have again encouraged family to put compression stockings on patient during the day (and off at night) and to try to keep patient's lower extremities elevated when edema occurs (5) Overweight (BMI 25.0-29.9): Code(s): E66.3 - Overweight Plan: Reinforced diet/exercise as tolerated/lose weight Plan To return in 1 year for his next annual physical examination Orders: Orders Comprehensive [place]. Panel Fast 1 Year E78.00 - Pure hypercholesterolemia, unspecified, Z00.00 - Encounter for general adult medical examination without abnormal findings TSH reflex Free T4 1 Year E78.00 - Pure hypercholesterolemia, unspecified, Z00.00 - Encounter for general adult medical examination without abnormal findings Vitamin D 25-OH Total 1 Year E55.9 - Vitamin D deficiency, unspecified, Z00.00 - Encounter for general adult medical examination without abnormal findings Complete Blood Count Auto Diff 1 Year D64.9 - Anemia, unspecified, Z00.00 - Encounter for general adult medical examination without abnormal findings Lipid Panel 1 Year E78.00 - Pure hypercholesterolemia, unspecified, Z00.00 - Encounter for general adult medical examination without abnormal findings UA CC w/rflx Micro + Cult 1 Year R30.0 - Dysuria, Z00.00 - Encounter for genera l adult medical examination without abnormal findings Medications: New cholecalciferol (vitamin D3) 50 mcg PO DAILY 90 days 90 caps 3RF E55.9 - Vitamin D deficiency, unspecified cholecalciferol (vitamin D3) 50 mcg PO DAILY 90 days 90 caps 3RF E55.9 - Vitamin D deficiency, unspecified Coding Level of Care Code Est Pt Prev Care [id number]) Diagnoses Annual physical exam Z00.00 Vitamin D deficiency E55.9 Autism F84.0 Lymphedema of lower extremity I89.0 Overweight (BMI 25.0-29.9) E66.3 Additional Codes BERTHA-7 Assessment Billing - BERTHA-7 Assessment Tool: BERTHA-7 Assessment 32962 ([id number])
== END 2024-04-19 09:47 | disposition home or self-care (01) ==
PROVIDERS: PCP Internal Medicine; Visit Provider Internal Medicine
DX: Z00.00 Encounter for general adult medical examination without abnormal findings (principal); E55.9 Vitamin D deficiency, unspecified; F84.0 Autistic disorder; I89.0 Lymphedema, not elsewhere classified; E66.3 Overweight
CPT/HCPCS: 99395

== ENCOUNTER 2024-04-19 09:59 | Outpatient (REF) | payer OTHER, SELFPAY | END 2024-04-19 10:00 | disposition home or self-care (01) | LOC: HO.LAB 09:59 | PROVIDERS: PCP Internal Medicine; Visit Provider Internal Medicine | DX: Z13.89 Encounter for screening for other disorder (principal) ==

== ENCOUNTER 2025-07-11 16:51 | Outpatient (AMB) | payer OTHER, SELFPAY ==
[2025-07-11 16:53] VITALS: BP 132/84; PULSE 115; O2SAT 98; BMI 28.1
--- NOTE | 2025-07-11 16:53 | MHC.PC.OV ---
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: No Accompanied by: Self / Same As Patient Allergies No Known Allergies (No Known Allergies*) Allergy (Verified 07/14/25 03:16) Medication List - Last Reconciled 07/14/25 by Stan Tamez MD cholecalciferol (vitamin D3) 50 mcg PO DAILY 90 days clonidine HCl 0.2 mg PO BEDTIME PRN 30 days Tobacco use date assessed: 07/11/25 Dental Screening Dental Screen Date: 07/11/25 Did you have a dental visit in the last 12 months?: Yes Did you have a dental problem in the last 6 months where you did not have access to dental care?: No Was dental information given to patient?: Patient has dentist HPI Annual PE HPI Details Patient is brought in by mother today for his annual physical examination Patient is non-verbal due to his autism and information regarding patient is mostly provided by patient's mother and his family He is dependent (on others) for all ADLs due to his mental (autism) and physical (lymphedema) conditions and has [employer] services (approx 39 hrs/week) Per patient's mother, patient used to go to a day program but has not gone in 2 to 3 years now - states that patient did not like the experience His mother states that his family just helps take care of him at home, in addition to 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 States that since patient has been home and as long as they allow him to stay on his routine, he has not exhibited any signs or symptoms of aggressiveness and they stopped giving him his Rx about 2 years ago as they do not feel that he needs to be taking them since he has been home States that psychiatry closed his case then as a result since they feel that patient does not need to continue following up with them regularly if he is no longer being prescribed and maintained on any medications Per his mother, patient has been doing well except that he has not been sleeping much at night lately and tends to stay up all night for the past few months Notes that he has been taking more naps often during the day as a result but his family would like to try to get him back to sleeping more at night so he us up more during the day He's had no issues with acute headaches, dizziness, chest pains or SOB No nausea/vomiting, no abdominal pain noted He is incontinent of stool and urine and wears adult pull-ups Per his mother, he has not had any issues with bowel movements and his stools appear normal He has not had any follow up labs done since 2022 and again has not had it done prior to coming in for his appointment today [facility] Medical History Overweight (BMI 25.0-29.9) Vitamin D deficiency Tinea pedis of right foot Cellulitis of right foot Allergic dermatitis Autism Pyogenic granuloma Surgical History No pertinent past surgical history Family History Father Hypertension Hypercholesteremia Mother Depression Arthritis Brother In good health Autism Sister In good health Social History Housing: House Alcohol intake: never Patient Tobacco Use Status: Never used Tobacco e-Cigarette/Vaping Use: Never Used Second Hand Smoke Exposure: No service: No Current occupational status: disabled Cognitive needs: Yes Hearing needs: No Vision needs: No Questionnaire PHQ-9 Over the last 2 weeks, how often have you been bothered by any of the following problems? 1. Little interest or pleasure in doing things: nearly every day 2. Feeling down, depressed, or hopeless: several days 3. Trouble falling or staying asleep, or sleeping too much: several days 4. Feeling tired or having little energy: several days 5. Poor appetite or overeating: several days 6. Feeling bad about yourself - or that you are a failure or have let yourself or your family down: not at all 7. Trouble concentrating on things, such as reading the newspaper or watching television: not at all 8. Moving or speaking so slowly that other people could have noticed. Or the opposite - being so fidgety or restless that you have been moving around a lot more than usual: several days 9. Thoughts that you would be better off or of hurting yourself in some way: not at all Total score: 8 Depression Screening Interpretation: Positive Depression Screening Follow-up: Existing condition and Declines treatment (family stopped his Rx and does not feel that he needs to go back on them) Depression Screening Done: Yes 21639 - PHQ-9 Billing: Yes Source: Developed by Drs. Morgan Barton, Josefina Mcdaniel, Johnny Silva and colleagues, with an educational haydee from [employer]. Thrive Questionnaire Date Thrive assessed: 07/11/25 I am a: Parent/Caregiver What is your living situation today?: I have a steady place to live Within the past 12 months, did the food you bought not last and you didn't have the money to get more?: Never true Within the past 12 months, did you worry whether your food would run out before you got money to buy more?: Sometimes True Do you have trouble paying for medicines?: No Do you have trouble getting transportation to medical appointments?: Yes Do you have trouble paying your heating and electricity bill?: Yes Do you have trouble taking care of your child, family member or friend?: Yes Do you have trouble with day-to-day activities such as bathing, preparing meals, shopping, managing finances, etc.?: Yes Are you currently unemployed and looking for a job?: No Are you interested in more education?: Yes Please select the resources that you would like help with: Food, Transportation, Utilities and Daily support Currently or been in a relationship where the following occur: No concerns reported THRIVE Score: 3 AUDIT C Alcohol Use Questionnaire (AUDIT-C) 1. How often do you have a drink containing alcohol?: Never 3. How often do you have six or more drinks on one occasion?: Never Total Score: 0 Score Reviewed/Action Taken: Yes BERTHA-7 AMB Questionnaire BERTHA-7 Date BERTHA - 7 assessed: 07/11/25 Feeling nervous, anxious, or on edge: 0 = Not at all Not being able to stop or control worryin = Not at all Worrying too much about different things: 0 = Not at all Trouble relaxin = Several days Being so restless that it is hard to sit still: 1 = Several days Becoming easily annoyed or irritable: 1 = Several days Feeling afraid as if something awful might happen: 0 = Not at all Total BERTHA-7 score (0-4 normal; 5-9 mild; 10-14 moderate; 15-21 severe): 3 Source: Developed by Drs. Morgan Bartno, Josefina Mcdaniel, Johnny Silva and colleagues, with an educational haydee from [employer]. BERTHA-7 Assessment Billing BERTHA-7 Assessment Tool: BERTHA-7 Assessment 58565 Review of Systems Const Details: ROS is limited to what family/mother can provide information-gordon, as patient is non-verbal Denies chills, Denies fatigue, Denies fever(s), Denies headache(s), Denies malaise and Denies weakness Eyes Denies blurry vision, Denies change in vision, Denies irritation and Denies itchy eyes ENT Denies dysphagia, Denies dizziness, Denies otalgia, Denies headache(s), Denies nasal congestion, Denies neck pain, Denies odynophagia and Denies sore throat Card Denies chest pain, Denies rapid heart rate, Denies irregular heart rhythm, Denies palpitations and Denies dyspnea Resp Denies chest congestion, Denies cough, Denies dyspnea and Denies wheezing GI Denies abdominal pain, Denies bloating, Denies constipation, Denies dysphagia, Denies heartburn, Denies diarrhea, Denies nausea, Denies odynophagia and Denies vomiting Denies hematuria, Denies difficulty urinating, Denies dysuria, Denies urinary frequency and Denies urinary urgency Musc Denies back pain, Denies arthralgias, Denies joint swelling, Denies muscle weakness and Denies neck pain Skin/Breast Denies change in pigmentation, Denies lesions, Denies rash and Denies unusual bruising Neuro Denies dizziness, Denies headache(s), Denies paresthesias and Denies weakness Endo Denies fatigue and Denies palpitations Aller/Immun Denies itchy eyes and Denies wheezing Physical exam (Primary Care) Vital Signs: Last Vital Signs Pulse 115 H 07/11/25 16:53 BP 132/84 07/11/25 16:53 Pulse Ox 98 07/11/25 16:53 Oxygen Delivery Method Room Air 07/11/25 16:53 BMI result Body Mass Index 28.1 Tobacco/Smoking Status: Tobacco use Status Tobacco use date assessed 07/11/25 07/11/25 16:58 Patient Tobacco Use Status Never used Tobacco 07/11/25 16:58 e-Cigarette/Vaping Use Never Used 07/11/25 16:58 PHQ-9: PHQ-9 Score PHQ-9: Total score 8 07/11/25 17:15 Depression Screening Interpretation: Positive Depression Screening Follow-up: Existing condition and Declines treatment (family stopped his Rx and does not feel that he needs to go back on them) Thrive Assessment: Date of Thrive Assessment Date Thrive assessed 07/11/25 07/11/25 16:58 Currently or been in a relationship where the following occur: No concerns reported Const Other: PE findings are limited to what patient is able to cooperate with exam-gordon General: no acute distress, alert and awake Nutritional Appearance: well nourished Orientation/consciousness: patient oriented x3 Limitations: behavioral limitations (autistic and non-verbal) HENMT Head: Yes normocephalic and Yes atraumatic Ears: external ears normal, TM's normal bilaterally and EAC's normal General nose exam: No nasal discharge present Face and sinus: Yes normal facial exam and Yes sinuses nontender Mouth: Normal oral and palatal mucosa present Teeth and gingiva: dentition normal Throat: Yes posterior oropharynx normal and Yes tonsils normal (no TP congestion) Eyes Eyelids: Yes eyelids normal Conjunctivae: conjunctivae normal Pupils: Equal, round and reactive pupils present EOM: EOMs intact bilaterally Neck Neck: Yes no lymphadenopathy and Yes supple Thyroid: Thyroid normal Resp Auscultation: clear to auscultation bilaterally, no rales and no wheezes Cardio Rate: regular rate Rhythm: regular rhythm Heart sounds: no murmurs GI Palpation (GI): Soft to palpation, nontender and No hepatosplenomegaly present Auscultation: normal bowel sounds General: Yes no CVA tenderness Back/Spine/Pelvis Back: no CVA tenderness Thoracic/Lumbar Spine: thoracic and lumbar spine normal to inspection Skin Lesions: no lesions Rashes: no rashes Neuro General: patient oriented x3, moves all extremities, no focal motor deficits and CN's II-XI intact bilaterally Cranial nerves: Yes Equal, round and reactive pupils present Cognition (Neuro): normal cognition Gait exam (Neuro): Normal gait present Extrem General: No clubbing, No cyanosis and Yes pedal edema ((+) trace, bilaterally) Coding Level of Care Code Est Pt Prev Care 18-39y(78204) Diagnoses Annual physical exam Z00.00 Vitamin D deficiency E55.9 Autism F84.0 Insomnia, unspecified type G47.00 Insomnia type: unspecified Overweight (BMI 25.0-29.9) E66.3 Additional Codes BERTHA-7 Assessment Billing - BERTHA-7 Assessment Tool: BERTHA-7 Assessment 20145 ([id number]) PHQ-9 - 72294 - PHQ-9 Billing: Yes ([id number]) Assessment & Plan Assessment & Plan (1) Annual physical exam: Code(s): Z00.00 - Encounter for general adult medical examination without abnormal findings Category: Medical Plan: Check labs QUENTIN to complete his annual exam today Patient has not had any follow up labs done since 2022 and will need his labs reordered as the ones ordered from last year are now over a year old and have (2) Vitamin D deficiency: Code(s): E55.9 - Vitamin D deficiency, unspecified Category: Medical Plan: Continue Vitamin D3 2000 units QD Will recheck his Vitamin D level QUENTIN for follow up (3) Autism: Code(s): F84.0 - Autistic disorder Category: Medical Plan: Patient is non-verbal and dependent for all ADLs - he currently still has [employer] services He used to go to day programs and was on multiple Rx's, including Citalopram, Clonidine and Risperidone in the past but his mother states that he has been mostly staying at home for about 2 to 3 years now and no longer goes to any day programs He was also taken off all of his meds by family a couple of years ago as he was being prescribed meds mostly to help control his aggressiveness - (he reportedly gets aggressive when taken off his routine at the program) but his mother states that since he has been staying at home and left to his own routine, he has not exhibited any signs of aggression and as such, they do not feel that he needed to continue to be medicated States that psychiatry signed off on his case a couple of years ago as a result and he is no longer seeing psychiatry for follow up regularly (4) Insomnia: Code(s): G47.00 - Insomnia, unspecified Category: Medical Qualifiers: Insomnia type: unspecified Qualified Code(s): G47.00 - Insomnia, unspecified Plan: Will start him back on Clonidine 0.2 mg Q HS PRN (5) Overweight (BMI 25.0-29.9): Code(s): E66.3 - Overweight Category: Medical Plan: Reinforced to patient's family that they should try to keep him on a healthy diet to help manage his weight Exercise and physical activites are limited to what patient can and is willing to do but his family is advised to try to keep him more active physically as often as they can Plan Follow up in 4 months Orders: Orders Comprehensive [place]. Panel Fast 07/11/25 E78.00 - Pure hypercholesterolemia, unspecified, Z00.00 - Encounter for general adult medical examination without abnormal findings TSH reflex Free T4 07/11/25 E78.00 - Pure hypercholesterolemia, unspecified, Z00.00 - Encounter for general adult medical examination without abnormal findings UA CC w/rflx Micro + Cult 07/11/25 R30.0 - Dysuria, Z00.00 - Encounter for general adult medical examination without abnormal findings XR chest 2V 07/11/25 R05 - Cough Complete Blood Count Auto Diff 07/11/25 D64.9 - Anemia, unspecified, Z00.00 - Encounter for general adult medical examination without abnormal findings Lipid Panel 07/11/25 E78.00 - Pure hypercholesterolemia, unspecified, Z00.00 - Encounter for general adult medical examination without abnormal findings Vitamin D 25-OH Total 07/11/25 E55.9 - Vitamin D deficiency, unspecified, Z00.00 - Encounter for general adult medical examination without abnormal findings Medications: New clonidine HCl 0.2 mg PO BEDTIME PRN 30 tabs 3RF sleep 30 days
--- OUTSIDE RECORDS SUMMARY | 2025-07-11 17:23 | XMS_ITS | Encounter Summary ---
Author Organization [facility] Address [address] [place] [id number] Phone Care Team Providers Care First Assistant Name Role Phone Jacqueline Reed MD Primary Care Provider Unavailabl e Encounter Details Date Type Department Care Team (Late st Contact Info) Description 05/04/2017 Conversion Encounter [place] [facility] - [address] [id number] Social History Tobacco Use Types Packs/Day Years Used Date Smoking Tobacco: Never Assessed Sex and Gender Information Value Date Recorded Sex Assigned at Not on file Legal Sex Male 4:25 PM EDT Gender Identity Not on file Sexual Orientation Not on file documented as of this encounter Plan of Treatment Not on file documented as of this encounter Visit Diagnoses Not on filedocumented in this encounter Care Teams First Assistant Relationship Specialty Start Date End Date Jacquelien Reed MD PCP - General 04/28/17 documented as of this encounter
--- OUTSIDE RECORDS SUMMARY | 2025-07-11 17:23 | XMS_ITS | Clinical Summary ---
Author Organization [facility] Address [address] [place] [id number] Phone Care Team Providers Care Historical Manuscripts Curator Name Role Phone Jacqueline Reed MD Primary Care Provider Unavailabl e Immunizations Immunization Administration Dates Next Due DTP 06/10/1992, 0,1987,08/05 Hep B, ped/adol 12/22/1999,06/18/1999,05/10/1999 Hib (PRP-T) 06/07/1990 IPV 06/10/1992,12/20/1989,1987 MMR 05/10/1999,12/20/1989 Meningococcal Conj (Menactra) MCV4P 05/08/2008 Td (adult) (MBL), 2 Lf tetan us toxoid, PF, adsorbed 05/10/1999 Tdap 05/08/2008 Unknown Vaccine 05/15/1995 Family History Relation Name Status Comments Brother Alive Brother: Asperg ers, Migraines Father Alive Father: Elevate d cholesterol Mother Alive Mother: Hip dys plasia, migraines Other Family history of Obesity, Family history of Sudden /ID under age 55, Family history of Autism, Family history of Diabetes mellitus Sister Alive Sister: Alive a nd well Social History Tobacco Use Types Packs/Day Years Used Date Smoking Tobacco: Never Assessed Sex and Gender Information Value Date Recorded Sex Assigned at Not on file Legal Sex Male 4:25 PM EDT Gender Identity Not on file Sexual Orientation Not on file Plan of Treatment Health Maintenance Due Date Last Done Comments Varicella Vaccines (1 of 2 - 13+ 2-dose series) 2000 HPV Vaccines (1 - 3-dose SCDM series) 2014 DTaP,Tdap,and Td Vaccines (6 - Td or Tdap) 05/08/2018 05/08/2008, 05/10/1999, 06/10/1992, Additional history exists Influenza Vaccines (#1) 2025 COVID-19 Vaccine ( season) 2025 HIB Vaccines Completed 06/07/1990 IPV Vaccines Completed 06/10/1992, 12/1989, 1987 MMR Vaccines Completed 05/10/1999, 12/20/1989 Hepatitis B Vaccines Completed 12/22/1999, 06/18/1999, 05/10/1999 Meningococcal Vaccine Aged Out 05/08/2008 No mey prabha eligible based on patient's age to complete this topic Hepatitis A Vaccines Aged Out No long er eligible based on patient's age to complete this topic Men B Vaccine Aged Out No longer elig ible based on patient's age to complete this topic Pneumococcal Vaccine Aged Out No long er eligible based on patient's age to complete this topic Care Teams Historical Manuscripts Curator Relationship Specialty Start Date End Date Jacqueline Reed MD PCP - General 04/28/17
== END 2025-07-11 17:16 | disposition home or self-care (01) ==
LOC: HO.HMCH 16:52
PROVIDERS: PCP Internal Medicine; Visit Provider Internal Medicine
DX: Z00.00 Encounter for general adult medical examination without abnormal findings (principal); E55.9 Vitamin D deficiency, unspecified; F84.0 Autistic disorder; G47.00 Insomnia, unspecified; E66.3 Overweight

== ENCOUNTER → 2025-07-11 16:51 | Outpatient (BNVA) | payer OTHER, SELFPAY | PROVIDERS: PCP Internal Medicine; Visit Provider Internal Medicine | DX: Z00.00 Encounter for general adult medical examination without abnormal findings (principal); R05.3 Chronic cough; F84.0 Autistic disorder; I89.0 Lymphedema, not elsewhere classified; E55.9 Vitamin D deficiency, unspecified; G47.00 Insomnia, unspecified; E66.3 Overweight; Z68.28 Body mass index [BMI] 28.0-28.9, adult | CPT/HCPCS: 96127; 99395 ==

== ENCOUNTER 2025-08-05 09:26 | Outpatient (REF) | payer OTHER, SELFPAY ==
--- NOTE | ~2025-08-05 | XR_ITS ---
EXAMINATION: XR CHEST CLINICAL INFORMATION: R05 - Cough COMPARISON: X-ray 11/16/2020 TECHNIQUE: 2 views of the chest were obtained. FINDINGS: The cardiomediastinal silhouette is within normal limits. Low lung volumes.. Mild peribronchial thickening in the lower lungs. There is no focal consolidation, edema, or effusion. No pneumothorax. No acute osseous abnormality. XR/XR chest 2V IMPRESSION: Bronchial wall thickening can be seen with small airway disease. No confluent consolidation. Electronically signed by: Brian Last MD 08/05/2025 10:43 AM EST
[2025-08-05 10:56] LABS: Appearance Urine Clear; Glucose Urine UA Negative (Negative); PH 5.5 (5.0-9.0); Specific Gravity - Urine >= 1.030 (1.005-1.025); UMIC TRIGGER UACC YES
[2025-08-05 11:15] LABS: Alanine Aminotransferase 14 U/L (0-40); Albumin Level 4.7 g/dL (3.5-5.0); Alkaline Phosphatase 118 U/L (39-117); Anion Gap 14 (12-20); Aspartate Amino Transferase 23 U/L (5-37); Blood Urea Nitrogen 16 mg/dL (9-16); Calcium 9.3 mg/dL (8.4-10.2); Carbon Dioxide 23 mmol/L (22-29); Chloride 107 mmol/L (96-108); Cholesterol 188 mg/dL (<200); Estimated Glomerular Filt Rate > 60; HDL Cholesterol 44 mg/dL (>40); Potassium 4.0 mmol/L (3.3-5.1); Sodium 140 mmol/L (135-145); Total Protein 7.8 g/dL (6.5-8.0); Triglycerides 86 mg/dL (<150)
== END 2025-08-05 09:27 | disposition home or self-care (01) ==
LOC: HO.LAB 09:26
PROVIDERS: PCP Internal Medicine; Visit Provider Internal Medicine
DX: Z00.00 Encounter for general adult medical examination without abnormal findings (principal); E78.00 Pure hypercholesterolemia, unspecified; E55.9 Vitamin D deficiency, unspecified; R05.9 Cough, unspecified
CPT/HCPCS: 36415; 71046; 80053; 80061; 81001; 82306; 84443; 85025